=== PATIENT | male | born 1965 | race Caucasian/White ===

== ENCOUNTER 2021-03-04 10:00 | Outpatient (CLI) | payer MEDICAID ==
--- NOTE | 2021-03-04 12:40 | XRAY Report ---
PROCEDURE: Shoulder 3 View LT INDICATIONS: BURSITIS, LEFT SHOULDER TECHNIQUE: 4 views of the shoulder were acquired. COMPARISON: None. FINDINGS: BONES: No acute, displaced fracture or dislocation. The glenohumeral and acromioclavicular joint spac es are maintained. SOFT TISSUES: No focal abnormality or appreciable pneumothorax. IMPRESSION: 1.No acute osseous abnormality. Reviewed by: Lauro Lau MD on 03/04/2021 12:38 PM [facility] Approved by: Lauro Lau MD on 03/04/2021 12:38 PM [facility] Station ID: [id number]
== END 2021-03-04 23:59 | disposition home or self-care (01) ==
LOC: DI.N 10:00
PROVIDERS: ATTEND Physician Assistant
DX: M75.52 Bursitis of left shoulder (principal)

== ENCOUNTER 2022-08-18 11:04 | Outpatient (CLI) | payer BC ==
--- NOTE | 2022-08-18 15:14 | Ultrasound Report ---
PROCEDURE: Head or Neck Soft Tissue INDICATIONS: ENLARGED LYMPH NODES TECHNIQUE: Real-time scanning was performed of the thyroid gland, with image documentation. COMPARISON: None FINDINGS AND IMPRESSION: At the areas of concern in the submandibular to supraclavicular neck, there are multiple prominent ly mph nodes with overall normal morphology, measuring 5 to 8 mm in short axis. These may be reactive. C ontinued clinical follow-up is recommended and reimaging should be obtained if there is any new or en larging abnormality. Reviewed by: Gonzalez Calderón MD on 08/18/2022 3:13 PM PDT Approved by: Gonzalez Calderón MD on 08/18/2022 3:13 PM PDT Station ID: [id number]
== END 2022-08-18 11:05 | disposition home or self-care (01) ==
LOC: DI 11:04
PROVIDERS: ATTEND Registered Nurse
DX: R59.0 Localized enlarged lymph nodes (principal); L98.0 Pyogenic granuloma